=== PATIENT | female | born 1960 | race Caucasian/White ===

== ENCOUNTER 2017-03-21 12:09 | Emergency (ER) | payer MEDICAID ==
[~2017-03-21] VITALS: Ht 154.9 cm; Wt 61.4 kg
[2017-03-21] MEDS ORDERED: TraMADol HCL 50 MG TABLET PO ONE (12:45)
[2017-03-21 13:28] VITALS: BP 118/64
== END 2017-03-21 14:08 | disposition home or self-care (01) ==
LOC: EMS 12:12
DX: S13.4XXA Sprain of ligaments of cervical spine, initial encounter (principal); S46.001A Unspecified injury of muscle(s) and tendon(s) of the rotator cuff of right shoulder, initial encounter; S40.011A Contusion of right shoulder, initial encounter; M19.011 Primary osteoarthritis, right shoulder; W19.XXXA Unspecified fall, initial encounter; Y93.89 Activity, other specified; Y92.89 Other specified places as the place of occurrence of the external cause; Y99.8 Other external cause status
CPT/HCPCS: 72040; 72070; 99284